=== PATIENT | male | born 1960 | race Caucasian/White ===

== ENCOUNTER → 2016-10-24 | Outpatient (CLI) | payer MEDICARE ==
[~2016-10-24] MED LIST: ASPIRIN 32325 MG/TA1 PO; ATIVAN 0.50.5 MG/TAB PO; CEPHALEXIN500 M1 PO; DOXYCYCLINE 10100 MG PO; FLEXERIL 1010 MG/TAB PO; KLONOPIN 1MG1 MG PO; LASIX 80MG TABL80 MG PO; MICRO-K 10 EXT10 MEQ PO; MOBIC 7.5MG7.5 MG PO; MOBIC15 MG PO; NORCO 325 MG-51 TAB PO; PRIL40 PO; PRILOSEC 20MG20 MG PO; PROAIR HFA0.09 MG/AC IH; PROTONIX 40MG T40 MG PO; PROVENTIL0.09 MG/A1 IH; REPREXAIN PO; THEO-DUR 2200 MG/TAB PO
== END ==
LOC: WCC 08:52
DX: I87.2 Venous insufficiency (chronic) (peripheral) (principal); E66.01 Morbid (severe) obesity due to excess calories
CPT/HCPCS: G0463

== ENCOUNTER → 2016-12-05 | Outpatient (CLI) | payer MEDICARE, MEDICAID ==
[~2016-12-05] VITALS: Ht 172.7 cm; Wt 165.8 kg
[2016-12-05 08:23] VITALS: BP 129/62; PULSE 80
== END ==
LOC: LIGHT 12-04 09:35
DX: E66.01 Morbid (severe) obesity due to excess calories (principal); Z68.43 Body mass index [BMI] 50.0-59.9, adult; Z71.3 Dietary counseling and surveillance; M54.5 Low back pain; F33.9 Major depressive disorder, recurrent, unspecified

== ENCOUNTER → 2016-12-11 | Outpatient (CLI) | payer MEDICARE, MEDICAID | LOC: LIGHT 10:32 | DX: Z01.818 Encounter for other preprocedural examination (principal) ==

== ENCOUNTER → 2016-12-27 | Outpatient (CLI) | payer MEDICARE, MEDICAID ==
[~2016-12-27] VITALS: Ht 172.7 cm; Wt 160.8 kg
[2016-12-27 15:11] VITALS: BP 119/66; PULSE 76
== END ==
LOC: LIGHT 11:28
DX: J45.909 Unspecified asthma, uncomplicated (principal); M54.5 Low back pain; M51.36 Other intervertebral disc degeneration, lumbar region; F33.9 Major depressive disorder, recurrent, unspecified; Z68.43 Body mass index [BMI] 50.0-59.9, adult; Z71.3 Dietary counseling and surveillance

== ENCOUNTER → 2017-01-10 | Outpatient (CLI) | payer MEDICARE, MEDICAID | LOC: LIGHT 09:58 | DX: E66.01 Morbid (severe) obesity due to excess calories (principal); Z68.43 Body mass index [BMI] 50.0-59.9, adult ==

== ENCOUNTER → 2017-02-07 | Outpatient (CLI) | payer MEDICARE, MEDICAID ==
[~2017-02-07] VITALS: Ht 172.7 cm; Wt 154.2 kg
[2017-02-07 10:11] VITALS: BP 106/66; PULSE 60
== END ==
LOC: LIGHT 09:59
DX: J45.909 Unspecified asthma, uncomplicated (principal); M54.5 Low back pain; M51.36 Other intervertebral disc degeneration, lumbar region; F33.9 Major depressive disorder, recurrent, unspecified; Z68.43 Body mass index [BMI] 50.0-59.9, adult; Z98.1 Arthrodesis status

== ENCOUNTER → 2017-03-07 | Outpatient (CLI) | payer MEDICARE, MEDICAID ==
[~2017-03-07] VITALS: Ht 172.7 cm; Wt 148.3 kg
[2017-03-07 14:11] VITALS: BP 104/80; PULSE 60
== END ==
LOC: LIGHT 10:59
DX: J45.909 Unspecified asthma, uncomplicated (principal); M54.5 Low back pain; M51.36 Other intervertebral disc degeneration, lumbar region; F33.9 Major depressive disorder, recurrent, unspecified; Z68.42 Body mass index [BMI] 45.0-49.9, adult; Z71.3 Dietary counseling and surveillance

== ENCOUNTER → 2017-04-25 | Outpatient (CLI) | payer MEDICARE, MEDICAID ==
[~2017-04-25] VITALS: Ht 172.7 cm; Wt 140.4 kg
[2017-04-25 09:32] VITALS: BP 106/70; PULSE 72
== END ==
LOC: LIGHT 09:18
DX: J45.909 Unspecified asthma, uncomplicated (principal); M54.5 Low back pain; M51.36 Other intervertebral disc degeneration, lumbar region; F33.9 Major depressive disorder, recurrent, unspecified; Z68.42 Body mass index [BMI] 45.0-49.9, adult; Z71.3 Dietary counseling and surveillance

== ENCOUNTER 2017-04-26 12:09 | Inpatient (IN) | payer MEDICARE, OTHER ==
[~2017-04-26] VITALS: Ht 172.7 cm; Wt 143.3 kg
[2017-07-03] MEDS ORDERED: ASPIRIN 81M81 MG/TA2 PO (08:22)
[2017-07-03 08:25] VITALS: BP 127/84; PULSE 77; TEMP 97.7
[2017-07-03 08:26] VITALS: BP 127/84; PULSE 77; TEMP 97.7
[2017-07-03 12:00] VITALS: BP 138/60; PULSE 64; TEMP 98.5
[2017-07-03 22:13] VITALS: BP 143/72; PULSE 58; TEMP 97.9
[2017-07-04 02:07] VITALS: BP 134/66; PULSE 69; TEMP 97.9
[2017-07-04 05:39] VITALS: BP 130/58; PULSE 89; TEMP 98.2
[2017-07-04 10:51] VITALS: BP 154/77; PULSE 94; TEMP 97.9
[2017-07-04 10:57] VITALS: BP 116/56; PULSE 70; TEMP 98.9
== END 2017-07-04 13:31 | disposition home or self-care (01) | DRG 621 ==
LOC: SURG 05-29 07:30 → INPTSU 07-03 07:53 → SURG 07-03 10:00
PROVIDERS: Surgery
PROC: 0DB64Z3 Excision of Stomach, Percutaneous Endoscopic Approach, Vertical (ICD-10-PCS; principal; 2017-07-03 10:00)
DX: E66.01 Morbid (severe) obesity due to excess calories (principal); Z68.42 Body mass index [BMI] 45.0-49.9, adult; K21.9 Gastro-esophageal reflux disease without esophagitis; J45.909 Unspecified asthma, uncomplicated; G47.30 Sleep apnea, unspecified; Z98.1 Arthrodesis status
CPT/HCPCS: A9284; J0330; J0690; J1100; J1170; J1885; J2250; J2405; J2704; J2710; J2765; J7120

== ENCOUNTER → 2017-06-19 | Outpatient (CLI) | payer MEDICARE, MEDICAID ==
[~2017-06-19] VITALS: Ht 172.7 cm; Wt 139.5 kg
== END ==
LOC: LIGHT 11:28
DX: Z01.89 Encounter for other specified special examinations (principal)

== ENCOUNTER → 2017-06-24 | Outpatient (CLI) | payer MEDICARE, MEDICAID | LOC: LIGHT 09:26 | DX: Z01.89 Encounter for other specified special examinations (principal) ==

== ENCOUNTER → 2017-07-08 | Outpatient (CLI) | payer MEDICARE, MEDICAID, OTHER ==
[~2017-07-08] VITALS: Ht 172.7 cm; Wt 136.5 kg
[~2017-07-08] MED LIST changes: +ASPIRIN 81M81 MG/TA2 PO
== END ==
LOC: LIGHT 07-03 12:27
DX: Z98.84 Bariatric surgery status (principal); M54.5 Low back pain; M51.36 Other intervertebral disc degeneration, lumbar region; F33.9 Major depressive disorder, recurrent, unspecified; Z68.42 Body mass index [BMI] 45.0-49.9, adult; Z71.3 Dietary counseling and surveillance

== ENCOUNTER → 2017-08-05 | Outpatient (CLI) | payer MEDICARE, MEDICAID, OTHER ==
[~2017-08-05] VITALS: Ht 172.7 cm; Wt 130.6 kg
[2017-08-05 15:13] VITALS: BP 114/60; PULSE 64
== END ==
LOC: LIGHT 08:51
DX: Z98.84 Bariatric surgery status (principal); M54.5 Low back pain; M51.36 Other intervertebral disc degeneration, lumbar region; F33.9 Major depressive disorder, recurrent, unspecified; Z68.41 Body mass index [BMI] 40.0-44.9, adult; Z71.3 Dietary counseling and surveillance

== ENCOUNTER → 2017-09-30 | Outpatient (CLI) | payer MEDICARE, MEDICAID, OTHER ==
[~2017-09-30] VITALS: Ht 172.7 cm; Wt 122.0 kg
[2017-09-30 14:02] VITALS: BP 120/68; PULSE 64
== END ==
LOC: LIGHT 13:21
DX: Z98.84 Bariatric surgery status (principal); M54.5 Low back pain; M51.36 Other intervertebral disc degeneration, lumbar region; F33.9 Major depressive disorder, recurrent, unspecified; Z68.41 Body mass index [BMI] 40.0-44.9, adult; Z71.3 Dietary counseling and surveillance

== ENCOUNTER → 2017-12-23 | Outpatient (CLI) | payer MEDICARE, MEDICAID, OTHER ==
[~2017-12-23] VITALS: Ht 172.7 cm; Wt 115.0 kg
[2017-12-23 14:07] VITALS: BP 112/68; PULSE 60
== END ==
LOC: LIGHT 13:55
DX: Z98.84 Bariatric surgery status (principal); M54.5 Low back pain; M51.36 Other intervertebral disc degeneration, lumbar region; F33.9 Major depressive disorder, recurrent, unspecified; Z68.38 Body mass index [BMI] 38.0-38.9, adult; Z71.3 Dietary counseling and surveillance
CPT/HCPCS: G0463

== ENCOUNTER → 2018-07-07 | Outpatient (CLI) | payer MEDICARE, MEDICAID, OTHER ==
[~2018-07-07] VITALS: Ht 172.7 cm; Wt 99.8 kg
[~2018-07-07] MED LIST changes: +CALCIUM WITH D31 CTB PO; +MULTI VITAMINS1 TAB PO; +VITAMIN B12 681 TAB PO; +VITAMIN D31000 I1 PO
[2018-07-07 14:21] VITALS: BP 100/68; PULSE 56
== END ==
LOC: LIGHT 14:03
DX: Z98.84 Bariatric surgery status (principal); M54.5 Low back pain; M47.817 Spondylosis without myelopathy or radiculopathy, lumbosacral region; F32.9 Major depressive disorder, single episode, unspecified; Z68.33 Body mass index [BMI] 33.0-33.9, adult; Z71.3 Dietary counseling and surveillance
CPT/HCPCS: G0463

== ENCOUNTER → 2019-12-10 | Outpatient (CLI) | payer MEDICARE, MEDICAID ==
[2019-12-10 10:38] LABS: HEMATOCRIT 44.9 % (42.0-52.0); HEMOGLOBIN 14.9 g/dl (13.5-18.0); MEAN CELL VOLUME 91 fl (80.0-100.0); MEAN CORPUSCULAR HEMOGLOBIN 30 pg (27.0-31.0); MEAN CORPUSCULAR HGB CONC 33 g/dl (33.0-37.0); MEAN PLATELET VOLUME 10.1 fl (7.4-10.4); PLATELET COUNT 208 K/mm3 (130-400); RED BLOOD COUNT 4.94 M/mm3 (4.20-5.60); REDCELL DISTRIBUTION WIDTH-CV 13.9 % (11.5-14.5)
[2019-12-10 10:40] LABS: BILIRUBIN,TOTAL 0.9 mg/dL (0.0-1.0); CALCIUM 9.1 mg/dL (8.4-10.2); CREATININE, serum 0.77 (0.66-1.25); POTASSIUM 3.8 mmol/L (3.4-5.0); TOTAL PROTEIN 7.4 gm/dL (6.4-8.2)
[2019-12-10 10:47] LABS: PRE ALBUMIN 20.4 mg/dL (17.6-36.0)
== END ==
LOC: COL.LAB 09:39
PROVIDERS: Surgery
DX: Z13.21 Encounter for screening for nutritional disorder (principal); Z98.84 Bariatric surgery status; Z13.228 Encounter for screening for other metabolic disorders

== ENCOUNTER → 2019-12-21 | Outpatient (CLI) | payer MEDICARE, MEDICAID ==
[~2019-12-21] VITALS: Ht 172.7 cm; Wt 116.1 kg
[2019-12-21 15:42] VITALS: BP 120/80; PULSE 72
== END ==
LOC: LIGHT 09:27
DX: E66.8 Other obesity (principal); Z68.38 Body mass index [BMI] 38.0-38.9, adult; Z98.84 Bariatric surgery status; M54.5 Low back pain; E16.1 Other hypoglycemia
CPT/HCPCS: G0463

== ENCOUNTER 2020-03-06 18:06 | Emergency (ER) | payer MEDICARE, MEDICAID ==
[~2020-03-06] VITALS: Ht 177.8 cm; Wt 90.9 kg
[2020-03-06 18:14] VITALS: TEMP 98.1
[2020-03-06] MEDS ORDERED: PEN-VEE K500 MG PO (18:56)
[2020-03-06] MEDS ORDERED: PERCOCET 325 MG1 TA2 PO (18:56)
[2020-03-06 19:05] VITALS: BP 136/89; PULSE 61
== END 2020-03-06 19:05 | disposition home or self-care (01) ==
LOC: COL.ER 18:06
DX: K08.89 Other specified disorders of teeth and supporting structures (principal); F17.290 Nicotine dependence, other tobacco product, uncomplicated